=== PATIENT | male | born 1980 | race Caucasian/White ===

== ENCOUNTER 2020-03-14 23:28 | Emergency (ER) | payer OTHER ==
[~2020-03-14] VITALS: Ht 170.2 cm; Wt 102.3 kg
--- NOTE | 2020-03-15 01:02 | NUR ---
PT GIVEN LARGE PITCHER OF WATER AND ENCOURAGED TO DRINK IT. PT AGREED AND IS GONIG TO REST AND WAIT FOR DISCHARGE UNTIL RESTED APPROPRIATELY
--- NOTE | 2020-03-15 01:37 | NUR ---
PT AMBULATED UP TO USE BATHROOM. AMBULATED WITHOUT DIFFICULTY AND HAD STEADY GAIT. PT THEN RETURNED TO BED WITHOUT ISSUE. WILL CONTINUE TO MONITOR PT AND ENCOURAGE FOOD AND FLUIDS. CRACKERS AND STRING CHEESE PROVIDED AT PT REQUEST
[2020-03-15 01:46] VITALS: BP 115/85
== END 2020-03-15 01:49 | disposition home or self-care (01) ==
LOC: ER 23:29
DX: F10.129 Alcohol abuse with intoxication, unspecified (principal); Y90.9 Presence of alcohol in blood, level not specified
CPT/HCPCS: 99283